=== PATIENT | male | born 1965 | race Caucasian/White ===

== ENCOUNTER 2021-06-13 09:40 | Outpatient (CLI) | payer BC ==
[2021-06-13] MEDS ORDERED: Iopamidol-370 76% 500 ML 1 ML ONE (10:17)
== END 2021-06-13 09:41 | disposition home or self-care (01) ==
LOC: RAD 09:40
PROVIDERS: ATTEND Surgery
DX: N32.1 Vesicointestinal fistula (principal)
CPT/HCPCS: 51600; 74430; Q9967